=== PATIENT | female | born 1960 | race African-American/Black ===

== ENCOUNTER 2019-11-08 11:33 | Emergency (ER) | payer OTHER ==
[~2019-11-08] VITALS: Ht 154.9 cm; Wt 79.4 kg
[2019-11-08] MEDS ORDERED: CLONIDINE HCL0.2 M2 PO (12:03)
[2019-11-08] MEDS ORDERED: SENSIPAR90 MG PO (12:04)
[2019-11-08] MEDS ORDERED: COLACE100 MG PO (12:04)
[2019-11-08 12:05] LABS: HEMATOCRIT 27.1 % (37.0-47.0); MCH 33.2 pg (26.0-34.0); MCHC 33.2 g/dL (28.0-37.0); PLATELET COUNT 276 thou/uL (150-400); RBC 2.71 mil/uL (4.20-5.00); WBC 6.5 thou/uL (4.0-11.0)
[2019-11-08 12:21] LABS: CALCIUM 8.5 mg/dL (8.5-10.1); CREATININE 7.5 mg/dL (0.6-1.0); POTASSIUM 4.5 mmol/L (3.5-5.1)
[2019-11-08 12:27] LABS: ALBUMIN 2.7 g/dL (3.4-5.0); TOTAL BILIRUBIN 0.6 mg/dL (<0.1-1.0); TOTAL PROTEIN 7.1 g/dL (6.4-8.2)
[2019-11-08] MEDS ORDERED: CINACALCET HCL90 MG PO (12:37)
[2019-11-08] MEDS ORDERED: WIXELA 500-501 EACH INH (12:37)
[2019-11-08] MEDS ORDERED: VITAMIN D350 MC1 PO (12:38)
[2019-11-08] MEDS ORDERED: BENZONATATE100 MG PO (12:38)
[2019-11-08] MEDS ORDERED: GILENYA0.5 MG PO (12:38)
[2019-11-08] MEDS ORDERED: RENAGEL800 MG PO (12:39)
[2019-11-08 13:07] LABS: ABSOLUTE NEUTROPHILS 4.6 thou/uL (1.4-8.2); METAMYELOCYTES 1 %
[2019-11-08 13:11] LABS: ANISOCYTOSIS 1+
[2019-11-08 15:15] VITALS: BP 179/78
--- NOTE | 2019-11-09 07:51 | EKG ---
[place] [address] [address] [facility] [place] [address] ELECTROCARDIOGRAM REPORT Name: AUTUMN TEJADA [facility] [id number] Admission: 11/08/19 Attend Phys: Discharge: 11/08/19 Date of : 56 Report #: [id number] THIS REPORT FOR: //name// [facility] ED Test Date: 2019-11-08 Test Time: 13:41:02 Pat Name: AUTUMN TEJADA Department: Room: Gender: F Fire Alarm Installer: nir : 1960 Requested By: Danae Chapin Order Number: [id number] MD: Donavon Gracia Measurements Intervals [place] Rate: 82 P: 55 LA: 156 QRS: 14 QRSD: 97 T: 39 QT: 402 QTc: 470 Interpretive Statements Sinus rhythm No significant abnormality No previous ECG available for comparison Electronically Signed On 11-09-2019 7:51:10 [employer] by Donavon Gracia [email or web address] <ELECTRONICALLY SIGNED> By: Donavon Gracia MD, [facility] 11/09/19 [id number] Donavon Gracia MD, FACC /EPI
== END 2019-11-08 15:15 | disposition still patient (30) ==
LOC: ER 11:33
PROVIDERS: Physician Assistant
DX: R06.00 Dyspnea, unspecified (principal); I12.0 Hypertensive chronic kidney disease with stage 5 chronic kidney disease or end stage renal disease; N18.6 End stage renal disease; Z99.2 Dependence on renal dialysis; Z88.8 Allergy status to other drugs, medicaments and biological substances; Z87.891 Personal history of nicotine dependence